=== PATIENT | female | born 2000 | race Caucasian/White ===

== ENCOUNTER 2021-05-28 00:53 | Day surgery (SDC) | payer OTHER ==
[2021-05-28 01:19] VITALS: BMI 25.7
[2021-05-28 02:21] LABS: Fetal Membranes Rupture No Membranes Rupture (No Rupture)
[2021-05-28] MEDS ORDERED: hydrALAZINE 20 MG/ML VIAL SLOW IVP PRN (03:07)
[2021-05-28 03:31] LABS: Bilirubin Neg (Negative); Blood, Urine Negative (Negative); Clarity Clear (Clear); Glucose, Urine (Dipstick) Normal (Negative); Ketone, Urine Negative (Negative); Leukocyte Negative (Negative); Nitrite Negative (Negative); Protein, Urine (Dipstick) Negative (Neg-Trace); Urobilinogen Normal mg/dL (Less than 2)
[2021-05-28 03:40] LABS: Bacteria/HPF None Seen HPF (None Seen); Mucous/LPF None Seen LPF (<2+); RBC/HPF None Seen HPF (0-3); Squamous Epithelial 0-3 HPF (0-3); Transitional Epithelial 0-3 HPF (None Seen); WBC/HPF None Seen HPF (0-3)
== END 2021-05-28 03:49 | disposition home or self-care (01) ==
LOC: CSHLD/OP 00:53
PROVIDERS: ATTEND Family Medicine
DX: O99.891 Other specified diseases and conditions complicating pregnancy (principal); O47.03 False labor before 37 completed weeks of gestation, third trimester; O99.343 Other mental disorders complicating pregnancy, third trimester; O99.613 Diseases of the digestive system complicating pregnancy, third trimester; O99.013 Anemia complicating pregnancy, third trimester; O99.513 Diseases of the respiratory system complicating pregnancy, third trimester; N89.8 Other specified noninflammatory disorders of vagina; R39.15 Urgency of urination; F41.9 Anxiety disorder, unspecified; K21.9 Gastro-esophageal reflux disease without esophagitis; J30.2 Other seasonal allergic rhinitis; K59.00 Constipation, unspecified; Z3A.33 33 weeks gestation of pregnancy; Z79.899 Other long term (current) drug therapy
CPT/HCPCS: 81001; 84112; 87480; 87510; 87660; 99285

== ENCOUNTER 2021-07-02 12:29 | Day surgery (SDC) | payer OTHER ==
[2021-07-02] MEDS ORDERED: hydrALAZINE 20 MG/ML VIAL SLOW IVP PRN (13:52)
[2021-07-02 14:06] VITALS: BMI 26.6
[2021-07-02 14:31] LABS: Fetal Membranes Rupture No Membranes Rupture (No Rupture)
== END 2021-07-02 15:25 | disposition home or self-care (01) ==
LOC: CSHLD/OP 12:29
PROVIDERS: ATTEND Family Medicine
DX: O47.1 False labor at or after 37 completed weeks of gestation (principal); O99.891 Other specified diseases and conditions complicating pregnancy; N89.8 Other specified noninflammatory disorders of vagina; Z3A.37 37 weeks gestation of pregnancy
CPT/HCPCS: 84112; 87480; 87510; 87660

== ENCOUNTER 2021-07-10 01:42 | Day surgery (SDC) | payer OTHER ==
[2021-07-10 02:17] VITALS: BMI 25.6
[2021-07-10 02:48] LABS: Fetal Membranes Rupture No Membranes Rupture (No Rupture)
[2021-07-10] MEDS ORDERED: hydrALAZINE 20 MG/ML VIAL SLOW IVP PRN (05:35)
== END 2021-07-10 05:45 | disposition home or self-care (01) ==
LOC: CSHLD/OP 01:42
PROVIDERS: ATTEND Family Medicine
DX: O47.1 False labor at or after 37 completed weeks of gestation (principal); Z3A.38 38 weeks gestation of pregnancy
CPT/HCPCS: 84112; 96360; 96361; 99283

== ENCOUNTER 2021-07-11 15:08 | Outpatient (CLI) | payer OTHER ==
[2021-07-12 11:37] LABS: SARS-CoV-2 PCR by NAA Not Detected (NotDetected)
== END 2021-07-11 15:09 | disposition home or self-care (01) ==
LOC: CSHLAB 15:08
PROVIDERS: ATTEND Family Medicine
DX: Z20.822 Contact with and (suspected) exposure to COVID-19 (principal)
CPT/HCPCS: U0003; U0005

== ENCOUNTER 2021-07-16 06:38 | Inpatient (IN) | payer OTHER ==
[2021-07-16] MEDS ORDERED: NS w/ Oxytocin 30 units 500 ML IVPB SCH (07:14)
[2021-07-16] MEDS ORDERED: Ibuprofen 800 MG TAB PO PRN (07:14)
[2021-07-16] MEDS ORDERED: Misoprostol 200 MCG TAB PR PRN (07:14)
[2021-07-16] MEDS ORDERED: Methylergonovine 0.2 MG/ML VIAL IM PRN (07:14)
[2021-07-16] MEDS ORDERED: HYDROcodone/Acetaminophen 5/325 mg Tablet PO PRN ×2 (07:14→14:37)
[2021-07-16] MEDS ORDERED: Diphenoxylate HCl/Atropine Tablet PO PRN (07:14)
[2021-07-16] MEDS ORDERED: Acetaminophen 500 MG TAB PO PRN (07:14)
[2021-07-16] MEDS ORDERED: hydrALAZINE 20 MG/ML VIAL SLOW IVP PRN ×2 (07:14→14:37)
[2021-07-16] MEDS ORDERED: Carboprost 250 MCG/ML AMP IM PRN (07:14)
[2021-07-16] MEDS ORDERED: Lidocaine 1% (PF) 30 ML VIAL SC PRN (07:14)
[2021-07-16] MEDS ORDERED: NS w/ Oxytocin 30 units 500 ML IV SCH ×3 (07:14→14:37)
[2021-07-16] MEDS ORDERED: Ondansetron PF 4 MG/2 ML Vial IVP PRN ×3 (07:14→14:37)
[2021-07-16] MEDS ORDERED: Promethazine HCl 25 MG/ML VIAL IM PRN ×3 (07:14→14:37)
[2021-07-16] MEDS ORDERED: Butorphanol Tartrate 1 MG/ML VIAL SLOW IVP PRN (07:14)
[2021-07-16] MEDS: Lactated Ringer's 1,000 ML IV SCH ×3 (07:47→11:04)
[2021-07-16] MEDS ORDERED: Bupivacaine 0.25% HCL 30 ML VIAL ONE (08:00)
[2021-07-16 08:06] LABS: Hemoglobin 13.5 g/dL (12.0-15.5); Mean Corpuscular HGB CONC 34.8 g/dL (32.0-36.0); Mean Corpuscular Hemoglobin 31.3 pg (27.0-33.0); Mean Corpuscular Volume 89.8 fl (81.6-98.3); Mean Platelet Volume 9.4 fl (7.4-10.4); Platelet Count 257 10x3/uL (150-450); RBC Distribution Width 17.7 % (11.5-14.5); Red Blood Cell (RBC) Count 4.32 10x6/uL (3.90-5.03); White Blood Cell (WBC) Count 10.5 10x3/uL (3.5-10.5)
[2021-07-16 08:35] VITALS: BMI 26.1
[2021-07-16 08:37] LABS: Hep B Surf Ag Non-Reactive S/CO (NonReactive); Syphilis Antibody Nonreactive (Nonreactive); Syphilis Antibody Index 0.06 S/CO (<1.00 Non-Reactive)
[2021-07-16 08:40] LABS: HBSAg Index 0.18 S/CO (0-0.99)
[2021-07-16] MEDS ORDERED: Acetaminophen 325 MG TAB PO PRN (09:04)
[2021-07-16] MEDS ORDERED: diphenhydrAMINE 50 MG/ML VIAL IVP PRN (09:04)
[2021-07-16] MEDS ORDERED: ePHEDrine Sulfate 50 MG/10 ML VIAL SLOW IVP PRN (09:04)
[2021-07-16] MEDS ORDERED: Naloxone HCl 0.4 mg/ml Vial IVP PRN ×2 (09:04)
[2021-07-16] MEDS ORDERED: Hydrocerin (Eucerin) Cream 120 gm Jar TOP PRN (09:04)
[2021-07-16] MEDS ORDERED: Lactated Ringer's 500 ML IV PRN (09:04)
[2021-07-16] MEDS ORDERED: Fentanyl 2 mcg/Bup 0.1% Cadd 100 ML ONE (09:06)
[2021-07-16] MEDS ORDERED: Communication Order-Pharmacy FS SCH (09:15)
[2021-07-16] MEDS ORDERED: Fentanyl 2 mcg/Bupivacaine 0.1% Cassette 100 ML EPIDURAL SCH (09:15)
[2021-07-16] MEDS ORDERED: Milk Of Magnesia 30 ML UDCUP PO PRN (14:37)
[2021-07-16] MEDS ORDERED: Preparation H Ointment 28 GM TUBE PR PRN (14:37)
[2021-07-16] MEDS ORDERED: Lanolin Ointment 7 GM TUBE TOP PRN (14:37)
[2021-07-16] MEDS ORDERED: Benzocaine-Menthol 82.5 ML CAN TOP PRN (14:37)
[2021-07-16] MEDS ORDERED: Boostrix 0.5 ML (Tdap) VIAL IM ONE (14:37)
[2021-07-16] MEDS ORDERED: diphenhydrAMINE 25 MG CAP PO PRN (14:37)
[2021-07-16] MEDS ORDERED: Bisacodyl 10 MG SUPP PR PRN (14:37)
[2021-07-16] MEDS: HYDROcodone/Acetaminophen 5/325 mg Tablet PO PRN (15:38)
[2021-07-16] MEDS: Ibuprofen 800 MG TAB PO SCH ×2 (18:36→21:17)
[2021-07-16] MEDS: Ferrous Sulfate 325 MG TAB PO SCH (18:39)
[2021-07-16] MEDS: Docusate Calcium (SURFAK) 240 MG CAP PO SCH (21:17)
[2021-07-17] MEDS: Ibuprofen 800 MG TAB PO SCH ×3 (05:14→21:07)
[2021-07-17] MEDS: Ferrous Sulfate 325 MG TAB PO SCH ×2 (07:47→16:58)
[2021-07-17] MEDS: Prenatal Vitamin 1 TAB PO SCH (09:27)
[2021-07-17] MEDS: Docusate Calcium (SURFAK) 240 MG CAP PO SCH ×2 (09:27→21:06)
[2021-07-17] MEDS: HYDROcodone/Acetaminophen 5/325 mg Tablet PO PRN ×2 (17:06→21:06)
[2021-07-18] MEDS: Ibuprofen 800 MG TAB PO SCH ×2 (05:42→14:48)
[2021-07-18 07:43] VITALS: BP 118/72; TEMP 98.4
[2021-07-18] MEDS: Ferrous Sulfate 325 MG TAB PO SCH (09:27)
[2021-07-18] MEDS: Docusate Calcium (SURFAK) 240 MG CAP PO SCH (09:28)
[2021-07-18] MEDS: Prenatal Vitamin 1 TAB PO SCH (09:28)
[2021-07-18] MEDS: HYDROcodone/Acetaminophen 5/325 mg Tablet PO PRN (10:58)
== END 2021-07-18 15:16 | disposition home or self-care (01) | DRG 807 ==
LOC: CSHLD 06:38 → CSHPP 15:15
PROVIDERS: ADMIT Family Medicine; ATTEND Family Medicine
PROC: 10E0XZZ Delivery of Products of Conception, External Approach (ICD-10-PCS; principal; 2021-07-16)
PROC: 10907ZC Drainage of Amniotic Fluid, Therapeutic from Products of Conception, Via Natural or Artificial Opening (ICD-10-PCS; 2021-07-16)
PROC: 0UQMXZZ Repair Vulva, External Approach (ICD-10-PCS; 2021-07-16)
PROC: 3E0P7VZ Introduction of Hormone into Female Reproductive, Via Natural or Artificial Opening (ICD-10-PCS; 2021-07-16)
PROC: 3E033VJ Introduction of Other Hormone into Peripheral Vein, Percutaneous Approach (ICD-10-PCS; 2021-07-16)
DX: O70.0 First degree perineal laceration during delivery (principal); Z37.0 Single live birth; Z20.822 Contact with and (suspected) exposure to COVID-19; Z3A.39 39 weeks gestation of pregnancy
CPT/HCPCS: 51702; 85027; 86780; 86850; 86900; 86901; 87340; J2590; J7120; S0020

== ENCOUNTER 2021-07-22 08:49 | Emergency (ER) | payer OTHER ==
[2021-07-22] MEDS ORDERED: Ketorolac Tromethamine 30 MG/ML VIAL ONE (10:00)
[2021-07-22] MEDS ORDERED: Tranexamic Acid 1,000 MG/10 ML VIAL ONE (10:00)
[2021-07-22] MEDS ORDERED: Fentanyl 100 MCG/2 ML VIAL ONE (10:00)
[2021-07-22] MEDS ORDERED: diphenhydrAMINE 50 MG/ML VIAL ONE (10:17)
[2021-07-22] MEDS ORDERED: EPINEPHrine 1 MG/ML AMP ONE (10:21)
[2021-07-22] MEDS ORDERED: Famotidine/PF 20 mg/2ml Vial ONE (10:24)
[2021-07-22] MEDS ORDERED: Dexamethasone 10 MG/ML VIAL ONE (10:24)
[2021-07-22 10:30] LABS: #Eosinphils 0.1 10x3/uL (0.0-0.5); #Monocytes 0.5 10x3/uL (0.0-1.1); #Neutrophils 7.5 10x3/uL (1.5-8.4); %Basophils 0.3 % (0.0-2.0); %Eosinophils 1.3 % (0.0-6.0); %Lymphocytes 13.6 % (18.0-47.0); %Monocytes 5.6 % (0.0-10.0); %Neutrophils 78.9 % (40.0-75.0); Hemoglobin 15.6 g/dL (12.0-15.5); Mean Corpuscular HGB CONC 34.1 g/dL (32.0-36.0); Mean Corpuscular Hemoglobin 30.8 pg (27.0-33.0); Mean Corpuscular Volume 90.1 fl (81.6-98.3); Mean Platelet Volume 9.1 fl (7.4-10.4); Platelet Count 317 10x3/uL (150-450); RBC Distribution Width 16.1 % (11.5-14.5); Red Blood Cell (RBC) Count 5.07 10x6/uL (3.90-5.03); White Blood Cell (WBC) Count 9.5 10x3/uL (3.5-10.5)
[2021-07-22 10:34] LABS: ALT (SGPT) 41 U/L (8-55); AST (SGOT) 36 U/L (5-34); Albumin 4.2 g/dL (3.5-5.0); Alkaline Phosphatase 134 U/L (40-100); Anion Gap 15 mmol/L (10-20); BUN (Urea Nitrogen) 6 mg/dL (7.0-18.7); Bilirubin, Total 0.4 mg/dL (0.2-1.2); Calc. Creatinine Clearance 0 mL/min (70-130); Carbon Dioxide 25 mmol/L (22-29); Chloride 105 mmol/L (98-107); Globulin 3.9 g/dL (2.4-3.5); Glucose 87 mg/dL (70-105); Potassium 3.6 mmol/L (3.5-5.1); Protein, Total 8.1 g/dL (6.0-8.3); Sodium 141 mmol/L (136-145)
[2021-07-22] MEDS ORDERED: Lorazepam 2 MG/ML VIAL ONE (11:00)
== END 2021-07-22 12:50 | disposition home or self-care (01) ==
LOC: CSHERS 08:49
DX: O99.893 Other specified diseases and conditions complicating puerperium (principal); R10.9 Unspecified abdominal pain; F41.9 Anxiety disorder, unspecified
CPT/HCPCS: 76856; 80053; 85025; J0171; J1100; J1200; J1885; J2060; J3010; S0028

== ENCOUNTER 2025-03-08 13:07 | Outpatient (CLI) | payer OTHER | END 2025-03-08 13:08 | disposition home or self-care (01) | LOC: CSHULT 13:07 | PROVIDERS: ATTEND Family Medicine | DX: Z34.82 Encounter for supervision of other normal pregnancy, second trimester (principal); Z3A.26 26 weeks gestation of pregnancy | CPT/HCPCS: 76805 ==

== ENCOUNTER 2025-04-15 16:41 | Inpatient (IN) | payer OTHER ==
[2025-04-15 17:22] VITALS: BMI 24.1
[2025-04-15] MEDS ORDERED: hydrALAZINE 20 MG/ML VIAL SLOW IVP PRN (17:26)
[2025-04-15 18:02] LABS: #Basophils Less than 0.03 10x3/uL (0.0-0.2); #Eosinophils 0.05 10x3/uL (0.0-0.5); #Monocytes 0.72 10x3/uL (0.0-1.1); #Neutrophils 5.96 10x3/uL (1.5-8.4); %Basophils 0.2 % (0.0-2.0); %Eosinophils 0.5 % (0.0-6.0); %Lymphocytes 26.0 % (18.0-47.0); %Monocytes 7.9 % (0.0-10.0); %Neutrophils 65.1 % (40.0-75.0); Hematocrit 29.1 % (34.9-44.5); Hemoglobin 9.2 g/dL (12.0-15.5); Mean Corpuscular Hemoglobin 25.0 pg (27.0-33.0); Mean Corpuscular Volume 79.1 fL (81.6-98.3); Platelet Count 290 10x3/uL (150-450); Red Blood Cell (RBC) Count 3.68 10x6/uL (3.90-5.03); White Blood Cell (WBC) Count 9.16 10x3/uL (3.5-10.5)
[2025-04-15] MEDS: Aspirin Chewable 81 MG TAB PO SCH (18:08)
[2025-04-15] MEDS ORDERED: Acetaminophen 500 MG TAB PO PRN (18:20)
[2025-04-15] MEDS ORDERED: Ondansetron PF 4 MG/2 ML Vial IVP PRN (18:20)
[2025-04-15 18:28] LABS: ALT (SGPT) 9 U/L (Less than 34); AST (SGOT) 27 U/L (11-34); Albumin 3.2 g/dL (3.1-4.5); Alkaline Phosphatase 83 U/L (40-110); Anion Gap 12 mmol/L (10-20); BUN (Urea Nitrogen) 5 mg/dL (7.0-18.7); Bilirubin, Total 0.3 mg/dL (0.3-1.2); Calc. Creatinine Clearance 153 mL/min (70-130); Calcium 9.0 mg/dL (7.8-10.44); Carbon Dioxide 20 mmol/L (22-29); Chloride 106 mmol/L (98-107); Globulin 3.8 g/dL (2.4-3.5); Glucose 88 mg/dL (70-105); Magnesium 1.9 mg/dL (1.6-2.6); Potassium 3.4 mmol/L (3.5-5.1); Sodium 135 mmol/L (136-145)
[2025-04-15] MEDS: metroNIDAZOLE 500 MG TAB PO SCH (20:01)
[2025-04-15 20:16] LABS: Glucose, Urine (Dipstick) Normal (Negative); Leukocyte Negative (Negative); Protein, Urine (Dipstick) Negative (Neg-Trace); Specific Gravity, Urine 1.005 (1.005-1.030)
[2025-04-15] MEDS: NIFEdipine 10 MG CAP ONE (20:39)
[2025-04-15 21:10] LABS: Bacteria/HPF Rare-Few HPF (None Seen); CAUTI Indications for Culture Pregnancy; RBC/HPF 0-3 HPF (0-3); WBC/HPF 0-3 HPF (0-3)
[2025-04-15 21:11] LABS: Urine Culture Reflex Yes Yes
[2025-04-15] MEDS: NIFEdipine 10 MG CAP PO SCH (21:18)
[2025-04-15 22:14] LABS: Hep B Surf Ag - L&D Non-Reactive S/CO (NonReactive)
[2025-04-15 22:15] LABS: Syphilis Antibody Index 0.07 S/CO (<1.00 Non-Reactive)
[2025-04-16 04:52] LABS: Cardiac Risk 5.0 (Less than 4.5); Cholesterol 368.0 mg/dl (< 200 Desired); HDL Cholesterol 74.0 mg/dL (>60 Neg Risk); LDL Cholesterol, Calculated 265.0 mg/dL; Triglycerides 145.0 mg/dL (Less than 150)
[2025-04-16] MEDS: metroNIDAZOLE 500 MG TAB PO SCH (09:21)
== END 2025-04-17 18:25 | disposition home or self-care (01) | DRG 832 ==
LOC: CSHLD/OP 16:41 → CSHLD 18:14 → OBSVTOIN 04-16 18:26
PROVIDERS: ADMIT Family Medicine; ATTEND Family Medicine
DX: O99.891 Other specified diseases and conditions complicating pregnancy (principal); O23.593 Infection of other part of genital tract in pregnancy, third trimester; O99.343 Other mental disorders complicating pregnancy, third trimester; F41.9 Anxiety disorder, unspecified; Z3A.32 32 weeks gestation of pregnancy; R20.0 Anesthesia of skin; F90.9 Attention-deficit hyperactivity disorder, unspecified type; H54.62 Unqualified visual loss, left eye, normal vision right eye
CPT/HCPCS: 36415; 36416; 70450; 76817; 80053; 80061; 81001; 83036; 83735; 85025; 86780; 86850; 86900; 86901; 87086; 87340; 87480; 87510; 87660; 93306; 93880; 99285; J0702; J3105; J7120

== ENCOUNTER 2025-05-18 15:40 | Day surgery (SDC) | payer OTHER ==
[2025-05-18] MEDS ORDERED: hydrALAZINE 20 MG/ML VIAL SLOW IVP PRN (17:07)
== END 2025-05-18 19:51 | disposition home or self-care (01) ==
LOC: CSHLD/OP 15:40
PROVIDERS: ATTEND Family Medicine
DX: O47.1 False labor at or after 37 completed weeks of gestation (principal); Z3A.36 36 weeks gestation of pregnancy; Z79.899 Other long term (current) drug therapy
CPT/HCPCS: 99283

== ENCOUNTER 2025-05-22 13:04 | Inpatient (IN) | payer OTHER ==
[2025-05-22 15:23] VITALS: BMI 25.1
[2025-05-22] MEDS ORDERED: Acetaminophen 500 MG TAB PO PRN (15:33)
[2025-05-22] MEDS ORDERED: Diphenoxylate HCl/Atropine Tablet PO PRN (15:33)
[2025-05-22] MEDS ORDERED: hydrALAZINE 20 MG/ML VIAL SLOW IVP PRN ×2 (15:33→19:02)
[2025-05-22] MEDS ORDERED: Lidocaine 1% (PF) 30 ML VIAL SC PRN (15:33)
[2025-05-22] MEDS ORDERED: Tranexamic Acid 1,000 MG/10 ML VIAL IVP PRN (15:33)
[2025-05-22] MEDS ORDERED: HYDROcodone/Acetaminophen 5/325 mg Tablet PO PRN (15:33)
[2025-05-22] MEDS ORDERED: Ondansetron PF 4 MG/2 ML Vial IVP PRN ×3 (15:33→19:02)
[2025-05-22] MEDS ORDERED: Methylergonovine 0.2 MG/ML VIAL IM PRN (15:33)
[2025-05-22] MEDS ORDERED: Carboprost 250 MCG/ML AMP IM PRN (15:33)
[2025-05-22] MEDS ORDERED: Ibuprofen 800 MG TAB PO PRN (15:33)
[2025-05-22 15:34] LABS: Hematocrit 32.6 % (34.9-44.5); Hemoglobin 10.0 g/dL (12.0-15.5); Mean Corpuscular Hemoglobin 24.3 pg (27.0-33.0); Mean Corpuscular Volume 79.3 fL (81.6-98.3); Platelet Count 317 10x3/uL (150-450); Red Blood Cell (RBC) Count 4.11 10x6/uL (3.90-5.03); White Blood Cell (WBC) Count 11.88 10x3/uL (3.5-10.5)
[2025-05-22] MEDS ORDERED: Oxytocin 30 units/NS 500 ML 500 ML IV SCH ×2 (15:45)
[2025-05-22 16:03] LABS: Syphilis Antibody Index 0.07 S/CO (<1.00 Non-Reactive)
[2025-05-22 16:05] LABS: Hep B Surf Ag - L&D Non-Reactive S/CO (NonReactive)
[2025-05-22] MEDS ORDERED: diphenhydrAMINE 50 MG/ML VIAL IVP PRN (16:10)
[2025-05-22] MEDS ORDERED: Acetaminophen 325 MG TAB PO PRN (16:10)
[2025-05-22] MEDS ORDERED: fentaNYL 2 mcg/Ropivacaine 0.2% Epidural 100 ML CADD EPIDURAL SCH (16:15)
[2025-05-22] MEDS ORDERED: Communication Order-Pharmacy FS SCH (16:15)
[2025-05-22] MEDS ORDERED: diphenhydrAMINE 25 MG CAP PO PRN (19:02)
[2025-05-22] MEDS ORDERED: Milk Of Magnesia 30 ML UDCUP PO PRN (19:02)
[2025-05-22] MEDS ORDERED: Bisacodyl 10 MG SUPP PR PRN (19:02)
[2025-05-22] MEDS ORDERED: Benzocaine-Menthol 82.5 ML CAN TOP PRN (19:02)
[2025-05-22] MEDS ORDERED: Lanolin Ointment 7 GM TUBE TOP PRN (19:02)
[2025-05-22] MEDS ORDERED: Preparation H Ointment 28 GM TUBE PR PRN (19:02)
[2025-05-22] MEDS: Ibuprofen 800 MG TAB PO SCH (20:22)
[2025-05-22] MEDS: fentaNYL/Ropivacaine Epidural 100 ML ONE (20:23)
[2025-05-22] MEDS: Lidocaine 1% (PF) 30 ML VIAL ONE (20:23)
[2025-05-22] MEDS: Oxytocin 30 units/NS 500 ML 500 ML ONE (20:23)
[2025-05-23] MEDS: Ferrous Sulfate 325 MG TAB PO SCH (08:06)
[2025-05-23] MEDS: HYDROcodone/Acetaminophen 5/325 mg Tablet PO PRN (11:15)
[2025-05-23 20:03] VITALS: BP 125/68; TEMP 98.4
== END 2025-05-24 14:45 | disposition home or self-care (01) | DRG 807 ==
LOC: CSHLD/OP 13:04 → CSHLD 15:10 → CSHPP 20:57
PROVIDERS: ADMIT Family Medicine; ATTEND Family Medicine
PROC: 10E0XZZ Delivery of Products of Conception, External Approach (ICD-10-PCS; principal; 2025-05-22)
PROC: 10907ZC Drainage of Amniotic Fluid, Therapeutic from Products of Conception, Via Natural or Artificial Opening (ICD-10-PCS; 2025-05-22)
DX: O80 Encounter for full-term uncomplicated delivery (principal); Z37.0 Single live birth; Z3A.37 37 weeks gestation of pregnancy
CPT/HCPCS: 51702; 85027; 86780; 86850; 86900; 86901; 87340; 99285